=== PATIENT | female | born 1975 | race Caucasian/White ===

== ENCOUNTER 2018-03-12 20:26 | Emergency (ER) | payer OTHER ==
[~2018-03-12] VITALS: Ht 172.7 cm; Wt 135.5 kg
[~2018-03-12 20:26] MED LIST: BISOPROLOL-HCT1 EAC4 PO; GLIMEPIRIDE2 MG PO; JANUVIA100 MG PO; LEVOTHYROXINE200 MC1 PO; LISINOPRIL-HCT1 EACH PO; LOMOTIL TABLET1 EACH PO; PROZAC10 MG PO; ZOFRAN ODT4 MG PO
[2018-03-12 21:36] LABS: HEMATOCRIT 36.1 % (36.0-46.0); HEMOGLOBIN 12.7 G/DL (11.9-15.5); MCH 27.6 PG (29.0-34.0); MCHC 35.2 G/DL (30.0-36.0); MCV 78.5 FL (83-99); PLATELET COUNT 188 K/uL (156-360); RBC DIS.WIDTH-CV 14.3 % (11.8-14.6); RBC DIS.WIDTH-SD 40.5 % (39-53)
[2018-03-12 21:45] LABS: ALBUMIN 3.8 g/dL (3.2-4.8); CHLORIDE 95 mEq/L (99-109); POTASSIUM 3.1 mEq/L (3.7-5.4); SODIUM 134 mEq/L (136-147)
[2018-03-12 21:48] LABS: GLUCOSE 289 mg/dL (70-99); TOTAL PROTEIN 7.3 g/dL (6.4-8.3)
[2018-03-12 21:50] LABS: TOTAL BILIRUBIN 0.7 mg/dL (0.0-1.0)
[2018-03-12 21:51] LABS: ALKALINE PHOSPHATASE 60 IU/L (3-129); CREATININE 0.8 mg/dL (0.6-1.3); GFR ESTIMATE (CALCULATED) > 59 mL/min/
[2018-03-12 21:53] LABS: AST (GOT) 26 IU/L (2-34); UREA NITROGEN (BUN) 8 mg/dL (9-23)
[2018-03-12 21:54] LABS: ALT (GPT) 37 IU/L (3-49)
[2018-03-12 22:00] LABS: QUANTITATIVE HCG < 4.0 MIU/ML
[2018-03-12 22:27] LABS: APPEARANCE CLEAR ((CLEAR)); BILIRUBIN NEGATIVE; BLOOD NEGATIVE; COLOR STRAW ((YELLOW)); GLUCOSE (STRIP) >=500; KETONES NEGATIVE; LEUKOCYTES MODERATE; NITRITE NEGATIVE; PROTEIN (STRIP) NEGATIVE; SPECIFIC GRAVITY 1.003 (1.000-1.030); UROBILINOGEN 0.2 MG/DL (0.2-1.0)
[2018-03-12 22:39] LABS: BACTERIA RARE /HPF; EPITHELIAL CELLS RARE /HPF; MUCUS TRACE /LPF; RED BLOOD CELLS 0-5 /HPF (0-5); UCUL ADDED? YES
[2018-03-13] MEDS ORDERED: AUGMENTIN875 MG PO (00:36)
[2018-03-13 00:54] VITALS: BP 118/56
== END 2018-03-13 00:55 | disposition home or self-care (01) ==
LOC: RME 20:26 → EME 20:26 → RME 03-13 00:55
PROVIDERS: Physician Assistant
DX: N39.0 Urinary tract infection, site not specified (principal); J01.90 Acute sinusitis, unspecified; E86.0 Dehydration; E11.9 Type 2 diabetes mellitus without complications; I10 Essential (primary) hypertension; Z79.84 Long term (current) use of oral hypoglycemic drugs
CPT/HCPCS: 80053; 81003; 83605; 84702; 85027; 87040; 87077; 87086; 87186; 87801; 99281; 99285; J0696; J0780; J1200; J7030